=== PATIENT | male | born 1990 | race Caucasian/White ===

== ENCOUNTER 2018-11-24 21:14 | Emergency (ER) | payer BC ==
[2018-11-24 22:20] LABS: ABS Basophils 0 10^3/ul (0-0.2); ABS Eosinophils 0.3 10^3/ul (0-0.6); ABS Lymphocytes 2.6 10^3/ul (1.0-4.8); ABS Monocytes 0.5 10^3/ul (0-0.8); ABS Neutrophils 3.6 10^3/ul (1.5-7.7); ABS Nucleated RBC 0 10^3/ul; Hematocrit 40 % (36-46); Hemoglobin 14.2 g/dL (14.0-18.0); Lymphocyte % 36.9 %; Mean Corpuscular HGB Conc 35 g/dL (31-36); Mean Corpuscular Hemoglobin 31 pg (27-31); Mean Corpuscular Volume 86 fL (80-94); Nucleated Red Blood Cells % 0.1; Platelet Count 231 10^3/uL (150-450); Red Blood Count 4.63 10^6 /uL (4.18-5.48); Red Cell Distribution Width 13 % (10.5-15)
[2018-11-24 22:39] LABS: Albumin 4.4 g/dL (3.2-5.2); Albumin/Globulin Ratio 1.8 (1-3); BUN/Creatinine Ratio 14.8 (8-20); C Reactive Protein 3.37 mg/L (<8.01); Calcium 9.3 mg/dL (8.6-10.3); EGFR African American 92.3 (>60); EGFR Non-African American 76.3 (>60); Globulin 2.5 g/dL (2-4); Potassium 3.8 mmol/L (3.5-5.0); Total Bilirubin 0.8 mg/dL (0.2-1.0); Total Protein 6.9 g/dL (6.4-8.9)
[2018-11-25] MEDS ORDERED: Pantoprazole IV* 40 MG IV ONE (00:08)
[2018-11-25] MEDS ORDERED: NS 0.9% 1000 ML** 1,000 ML IV ONE (00:09)
[2018-11-25] MEDS ORDERED: Ondansetron INJ* 2 MG/ML VIAL IV ONE (00:09)
[2018-11-25] MEDS ORDERED: Al Hydrox/Mg Hydrox/Simet LIQ* 30 ML UDC PO ONE (00:10)
[2018-11-25] MEDS ORDERED: Lidocaine 2% VISCOUS* 15 ML UDC PO ONE (00:10)
--- NOTE | 2018-11-25 00:13 | ED ---
GI/ HPI - HPI Summary HPI Summary: 28 year old male presents with an episode of bloody vomitus today. States she' s been having vomiting for the past 2 days. He has been having headaches as been taking Advil every day for the past 2 weeks. He denies any alcohol use. this has never happened before. He admits to a little bit of epigastric pain. Has been having diarrhea too. No blood in his stool. No fevers. He admits to occasional cough. No chest pain or shortness of breath. Denies any dizziness. - History of Current Complaint Chief Complaint: EDNauseaVomitDiarrh Time Seen by Provider: 11/24/18 23:52 Stated Complaint: VOMITING BLOOD/LIGHT HEADED PER PT Pain Intensity: 7 - Allergy/Home Medications Allergies/Adverse Reactions: Allergies Allergy/AdvReac Type Severity Reaction Status Date / Time No Known Allergies Allergy Verified 11/24/18 21:32 PMH/Surg Hx/FS Hx/Imm Hx Endocrine/Hematology History: Denies: Hx Anticoagulant Therapy Cardiovascular History: Denies: Hx Myocardial Infarction Infectious Disease History: No Infectious Disease History: Denies: Traveled Outside the [place] in Last 30 Days - Family History Known Family History: Negative: Blood Disorder - Social History Alcohol Use: Rare Substance Use Type: Reports: None Smoking Status (MU): Never Smoked Tobacco Review of Systems Negative: Fever Negative: Chest Pain Negative: Shortness Of Breath Positive: Abdominal Pain, Vomiting, Diarrhea, Nausea, Other - hemoptysis All Other Systems Reviewed And Are Negative: Yes Physical Exam Triage Information Reviewed: Yes Vital Signs On Initial Exam: Initial Vitals Temp Pulse Resp BP Pulse Ox 98.5 F 76 16 148/78 97 11/24/18 21:30 11/24/18 21:30 11/24/18 21:30 11/24/18 21:30 11/24/18 21:30 Vital Signs Reviewed: Yes Appearance: Positive: Well-Appearing Skin: Positive: Warm, Dry Head/Face: Positive: Normal Head/Face Inspection Eyes: Positive: Normal, Conjunctiva Clear ENT: Positive: Pharynx normal Respiratory/Lung Sounds: Positive: Clear to Auscultation, Breath Sounds Present Cardiovascular: Positive: Normal, RRR Abdomen Description: Positive: Soft, Other: - mild LUQ pain Bowel Sounds: Positive: Present Musculoskeletal: Positive: Normal Neurological: Positive: Normal Psychiatric: Positive: Normal Diagnostics - Vital Signs Vital Signs Temp Pulse Resp BP Pulse Ox 11/24/18 23:58 67 97 11/24/18 23:57 69 119/85 97 11/24/18 21:30 98.5 F 76 16 148/78 97 - Laboratory Lab Results: Lab Results 11/24/18 11/24/18 11/24/18 Range/Units 22:09 22:09 22:09 WBC 7.0 (3.5-10.8) 10^3/uL RBC 4.63 (4.18-5.48) 10^6 /uL Hgb 14.2 (14.0-18.0) g/dL Hct 40 (36-46) % MCV 86 (80-94) fL MCH 31 (27-31) pg MCHC 35 (31-36) g/dL RDW 13 (10.5-15) % Plt Count 231 (150-450) 10^3/uL MPV 7.0 L (7.4-10.4) fL Neut % (Auto) 51.8 % Lymph % (Auto) 36.9 % Dane % (Auto) 6.9 % Eos % (Auto) 4.0 % Baso % (Auto) 0.4 % Absolute Neuts (auto) 3.6 (1.5-7.7) 10^3/ul Absolute Lymphs (auto) 2.6 (1.0-4.8) 10^3/ul Absolute Monos (auto) 0.5 (0-0.8) 10^3/ul Absolute Eos (auto) 0.3 (0-0.6) 10^3/ul Absolute Basos (auto) 0 (0-0.2) 10^3/ul Absolute Nucleated RBC 0 10^3/ul Nucleated RBC % 0.1 Sodium 140 (135-145) mmol/L Potassium 3.8 (3.5-5.0) mmol/L Chloride 108 (101-111) mmol/L Carbon Dioxide 26 (22-32) mmol/L Anion Gap 6 (2-11) mmol/L BUN 17 (6-24) mg/dL Creatinine 1.15 (0.67-1.17) mg/dL Est GFR ( Amer) 92.3 (>60) Est GFR (Non-Af Amer) 76.3 (>60) BUN/Creatinine Ratio 14.8 (8-20) Glucose 116 H (70-100) mg/dL Lactic Acid 1.2 (0.5-2.0) mmol/L Calcium 9.3 (8.6-10.3) mg/dL Total Bilirubin 0.80 (0.2-1.0) mg/dL AST 33 (13-39) U/L ALT 77 H (7-52) U/L Alkaline Phosphatase 71 (34-104) U/L C-Reactive Protein 3.37 (<8.01) mg/L Total Protein 6.9 (6.4-8.9) g/dL Albumin 4.4 (3.2-5.2) g/dL Globulin 2.5 (2-4) g/dL Albumin/Globulin Ratio 1.8 (1-3) Lipase 30 (11.0-82.0) U/L Result Diagrams: 11/24/18 22:09 11/24/18 22:09 Lab Statement: Any lab studies that have been ordered have been reviewed, and results considered in the medical decision making process. Re-Evaluation - Re-Evaluation First Eval Re-Evaluation Time: 01:15 Change: Improved Comment: epigastric pain resolved GIGU Course/Dx - Course Course Of Treatment: 28 year old male presents with an episode of bloody vomitus today. States she's been having vomiting for the past 2 days. He has been having headaches as been taking Advil every day for the past 2 weeks. He denies any alcohol use. this has never happened before. He admits to a little bit of epigastric pain. Has been having diarrhea too. No blood in his stool. No fevers. He admits to occasional cough. No chest pain or shortness of breath. Denies any dizziness. On exam has mild epigastric tenderness. vitals stable. No vomiting here. Gave him Protonix and GI cocktail and feeling better. We'll discharge with omeprazole and Zofran. Told if epigastric pain continues after course omeprazole to follow up with GI. Patient understands agrees with plan. - Diagnoses Differential Diagnoses - Male: Gastroenteritis (Viral), Urinary Tract Infection , Vomiting Provider Diagnoses: Hematemesis Discharge - Sign-Out/Discharge Documenting (check all that apply): Patient Departure Patient Received Moderate/Deep Sedation with Procedure: No - Discharge Plan Condition: Good Disposition: HOME Prescriptions: Omeprazole 20 mg PO DAILY #14 tablet. Ondansetron ODT TAB* [Zofran 4 MG Odt TAB*] 4 mg PO Q6H PRN #12 tab.odt PRN Reason: Nausea Patient Education Materials: Acute Nausea and Vomiting (ED) Referrals: Kalia Schroeder MD [Primary Care Provider] - Zhang Centeno MD [Medical Doctor] - Additional Instructions: Take omeprazole once a day Take zofran every 6 hours as needed for nausea Avoid acidic foods Follow up with Gi if no improvement Return to ED if develop any new or worsening symptoms - Billing Disposition and Condition Condition: GOOD Disposition: Home
[2018-11-25] MEDS ORDERED: Ondansetron ODT TAB* 4 MG PO ONE (01:17)
[2018-11-25 02:09] VITALS: BP 131/70
== END 2018-11-25 02:10 | disposition home or self-care (01) ==
LOC: ED 21:14
DX: K92.0 Hematemesis (principal)
CPT/HCPCS: 36415; 80053; 83605; 83690; 85025; 86140; 96361; 96374; 96375; 99284; A9270-GY; J2405